=== PATIENT | male | born 1955 | race Caucasian/White ===

== ENCOUNTER 2025-02-16 19:32 | Emergency (ER) | payer MEDICARE ==
[~2025-02-16] VITALS: Ht 157.5 cm; Wt 82.3 kg
[~2025-02-16 19:32] MED LIST: ACET-2247 PO; BISA10S PR; DSS100 PO; Hydrocodone Bit/Acetaminophen PO; INSNOV SQ; [UNRECOGNIZED DRUG - CODE] IV
[2025-02-16 19:37] VITALS: TEMP 98
[2025-02-16 20:37] LABS: CALCIUM, TOTAL 9.5 mg/dL (8.8-10.5); CREATININE 1.16 mg/dL (0.60-1.30); GLOMERULAR FILTR. RATE CALC > 60 mL/min (>60); GLUCOSE,RANDOM 59 mg/dL (70-110); SODIUM SERUM 142 mmol/L (136-145); UREA NITROGEN, BLOOD 26 mg/dL (7-18)
[2025-02-16 20:38] LABS: PLATELET COUNT (AUTO) 250 K/uL (150-450); RED BLOOD CELL COUNT(AUTO) 5.10 MIL/uL (4.50-5.90); RED CELL DISTRIBUTION WIDTH 14.5 % (11.5-14.5); WHITE BLOOD COUNT (AUTO) 10.2 K/uL (4.5-11.0)
[2025-02-16 20:46] LABS: TROPONIN I-HIGH SENSITIVITY 7 ng/L (<76)
[2025-02-16] MEDS ORDERED: DEXTROSE 50%-WATER 25 GM/50 ML SYRINGE IVP ONE (20:58)
[2025-02-16] MEDS: DEXTROSE 50%-WATER 25 GM/50 ML SYRINGE IVP ONE (21:03)
[2025-02-16] MEDS ORDERED: DEXTROSE 10%-WATER 1,000 ML IV ONE (21:05)
[2025-02-16] MEDS: DEXTROSE 10%-WATER 1,000 ML IV SCH (21:09)
[2025-02-16 21:10] LABS: GLUCOMETER DEV NAME(LOC) ERT.7; GLUCOSE,POINT OF CARE 57 MG/DL (70-110)
[2025-02-16 21:20] LABS: APPEARANCE,URINE CLEAR (CLEAR); GLUCOSE, URINE (UA) 150-200 mg/dL (NEGATIVE); LEUKOCYTE ESTERASE ,URINE NEGATIVE (NEGATIVE); NITRATE,URINE NEGATIVE (NEGATIVE); OCCULT BLOOD,URINE NEGATIVE (NEGATIVE); SPECIFIC GRAVITIY, URINE 1.013 (1.003-1.030)
[2025-02-16 21:38] LABS: SQUAMOUS EPITHELIAL CELL,UR Rare /LPF (None Seen)
[2025-02-16 22:16] LABS: GLUCOMETER DEV NAME(LOC) ERT.7; GLUCOSE,POINT OF CARE 184 MG/DL (70-110)
[2025-02-16] MEDS: POTASSIUM CHLORIDE 20 MEQ ER TABLET PO ONE (22:16)
[2025-02-16] MEDS: LIDOCAINE 5% TRANSDERMAL PATCH TD ONE (23:52)
[2025-02-17 00:05] LABS: GLUCOMETER DEV NAME(LOC) ERT.7; GLUCOSE,POINT OF CARE 190 MG/DL (70-110)
[2025-02-17 00:40] VITALS: BP 115/67; PULSE 90; RESP 18; O2SAT 94
== END 2025-02-17 00:56 | disposition short-term general hospital (02) ==
LOC: EMS 19:32
DX: S20.211A Contusion of right front wall of thorax, initial encounter (principal); E11.649 Type 2 diabetes mellitus with hypoglycemia without coma; E87.6 Hypokalemia; E78.00 Pure hypercholesterolemia, unspecified; N39.0 Urinary tract infection, site not specified; R55 Syncope and collapse; R06.02 Shortness of breath; X58.XXXA Exposure to other specified factors, initial encounter; Y93.89 Activity, other specified; Y92.89 Other specified places as the place of occurrence of the external cause; Y99.8 Other external cause status
CPT/HCPCS: 71101; 80048; 81001; 81003; 82948; 82962; 83880; 84484; 85025; 93005; 96361; 96374; 99285; 36415-L1; 36415-TC